=== PATIENT | female | born 2000 | race Native Hawaiian/Other Pacific Islander ===

== ENCOUNTER 2018-03-29 16:17 | Outpatient (CLI) | payer OTHER | END 2018-03-29 23:58 | disposition home or self-care (01) | LOC: LABW 16:17 | DX: N93.8 Other specified abnormal uterine and vaginal bleeding (principal); E66.09 Other obesity due to excess calories | CPT/HCPCS: 36415; 83001; 83002; 83036; 84402; 84403; 84436; 84439; 84443; 84479 ==

== ENCOUNTER 2019-06-05 09:05 | Outpatient (CLI) | payer OTHER | END 2019-06-05 20:32 | disposition home or self-care (01) | LOC: RAD 09:05 | DX: M25.561 Pain in right knee (principal) ==

== ENCOUNTER 2019-06-13 08:08 | Outpatient (CLI) | payer OTHER | END 2019-06-13 21:15 | disposition home or self-care (01) | LOC: MRI 08:08 | DX: M25.561 Pain in right knee (principal) ==

== ENCOUNTER 2019-06-22 13:26 | Outpatient (CLI) | payer OTHER | END 2019-06-22 19:28 | disposition home or self-care (01) | LOC: MRI 13:26 | DX: E22.1 Hyperprolactinemia (principal) | CPT/HCPCS: A9576 ==

== ENCOUNTER 2020-02-02 21:51 | Emergency (ER) | payer OTHER ==
[~2020-02-02] VITALS: Ht 160 cm; Wt 129.3 kg
[2020-02-02 23:05] VITALS: BP 142/88; TEMP 98.5
== END 2020-02-02 23:05 | disposition home or self-care (01) ==
LOC: ED 21:51
DX: S76.312A Strain of muscle, fascia and tendon of the posterior muscle group at thigh level, left thigh, initial encounter (principal); W10.8XXA Fall (on) (from) other stairs and steps, initial encounter; Y92.89 Other specified places as the place of occurrence of the external cause; E03.8 Other specified hypothyroidism
CPT/HCPCS: 99283